=== PATIENT | male | born 1965 | race African-American/Black ===

== ENCOUNTER 2023-04-03 08:06 | Observation (INO) | payer SELFPAY ==
[2023-04-03 08:39] LABS: Absolute Lymphocytes (CBC) 1.3 K/uL (0.7-4.9); Hematocrit 37.7 % (39.6-49.0); Lymphocytes % 26.6 % (15.3-44.8); MCV 95.8 fL (80-100); MPV 9.9 fL (7.6-11.3); RBC Red Blood Cell Count 3.93 M/uL (4.33-5.43)
[2023-04-03 08:40] LABS: Protime INR 0.99
[2023-04-03] MEDS ORDERED: ASPIRIN 81 MG CHEWABLE TABLET ONE (08:41)
[2023-04-03] MEDS ORDERED: ONDANSETRON 4 MG/2 ML VIAL ONE (08:42)
[2023-04-03] MEDS ORDERED: MORPHINE 2 MG/ML SYR ONE (08:42)
[2023-04-03 08:57] LABS: Albumin 3.7 g/dL (3.4-5.0); Bilirubin Direct 0.1 mg/dL (0-0.2); Bilirubin Indirect, Calculated 0.3 mg/dL (0.2-0.8); Bilirubin Total 0.4 mg/dL (0.2-1.0); Magnesium 1.9 mg/dL (1.6-2.4); Potassium 4.5 mEq/L (3.5-5.1); Protein, Total 6.7 g/dL (6.4-8.2); Troponin High Sensitivity 3.6 pg/mL (<58.9)
--- NOTE | 2023-04-03 09:53 | RAD REPORT ---
EXAM DESCRIPTION: Julio Cesar Single View04/03/2023 8:53 am CLINICAL HISTORY: CHEST PAIN COMPARISON: No comparisons TECHNIQUE: Portable AP view of the chest. FINDINGS: The lungs are clear. No pneumothorax or effusion. The cardiomediastinal contours are unre markable. IMPRESSION: No acute cardiopulmonary process.
--- NOTE | 2023-04-03 11:39 | ER ---
Nurse's Notes [facility] Name: Dustin Jose Age: 57 yrs Sex: Male : 1965 Arrival Date: 04/03/2023 Time: 08:06 Bed 15 Private MD: Diagnosis: Chest pain, unspecified Presentation: 04/03 08:15 Chief complaint: Patient states: Chest pain. Coronavirus screen: Vaccine status: os Patient reports receiving the 2nd dose of the covid vaccine. NA. Ebola Screen: Patient negative for fever greater than or equal to 101.5 degrees Fahrenheit, and additional compatible Ebola Virus Disease symptoms. Initial Sepsis Screen: Does the patient meet any 2 criteria? No. Patient's initial sepsis screen is negative. Does the patient have a suspected source of infection? No. Patient's initial sepsis screen is negative. Risk Assessment: Do you want to hurt yourself or someone else? Patient reports no desire to harm self or others. Onset of symptoms was April 03, 2023 at 06:00. 08:15 Method Of Arrival: EMS: [facility] os 08:15 Acuity: APRIL 3 os Triage Assessment: 08:25 General: Appears in no apparent distress. comfortable, unkempt, Behavior is calm, os cooperative, appropriate for age. Pain: Complains of pain in chest Pain does not radiate. Pain currently is 8 out of 10 on a pain scale. Quality of pain is described as aching, Pain began 2 hours ago. Neuro: No deficits noted. Crisostomo Agitation-Sedation Scale (RASS): 0 - Alert and Calm Level of Consciousness is awake, alert, obeys commands, Oriented to person, place, time, situation, Appropriate for age [employer] Professor are equal bilaterally Moves all extremities. Gait is steady, Speech is normal, Facial symmetry appears normal, Pupils are PERRLA, Intact Babinski Reports Denies weakness blurred vision dizziness. Cardiovascular: Reports chest pain, Denies diaphoresis, fatigue, lightheadedness, nausea, Capillary refill < 3 seconds Rhythm is sinus bradycardia Chest pain is described as mild, quality is squeezing, is located in left anterior chest wall radiates began 2 hours prior to arrival. Respiratory: No deficits noted. GI: No deficits noted. Historical: - Allergies: 08:20 No Known Allergies; os - Home Meds: 10:46 aspirin 81 mg Oral tablet, delayed release (enteric coated) 1 tab daily [Active]; os losartan 50 mg oral tablet once [Active]; 10:48 metformin 1,000 mg Oral Tablet, ER Gastric Retention 24 hr 2 times per day for type 2 os diabetes mellitus [Active]; - Immunization history:: Adult Immunizations up to date. - Social history:: Smoking status: Patient reports the use of cigarette tobacco products, smokes one-half pack cigarettes per day. Screenin:56 [facility] ED Fall Risk Assessment (Adult) History of falling in the last 3 months, mb9 including since admission No falls in past 3 months (0 pts). [facility] ED Fall Risk Assessment (Adult) Confusion or Disorientation No (0 pts) Intoxicated or Sedated No (0 pts) Impaired Gait No (0 pts) Mobility Assist Device Used No (0 pt) Altered Elimination No (0 pt) Score/Fall Risk Level 0 - 2 = Low Risk. Abuse screen: Denies threats or abuse. Nutritional screening: No deficits noted. Tuberculosis screening: No symptoms or risk factors identified. Assessment: 09:12 Reassessment: Patient bradied down to 38 bpm. Provider Norman \Hugh\ Dr. England notified. os Vital Signs: 08:15 BP 150 / 82; Pulse 47; Resp 18; Temp 98.2; Pulse Ox 98% on R/A; os 09:07 BP 138 / 60; Pulse 37; Resp 18; Pulse Ox 98% ; os 09:35 BP 119 / 68; Pulse 37; Resp 17; Pulse Ox 99% on R/A; os 09:40 BP 137 / 83; Pulse 36; Resp 16; Pulse Ox 99% on R/A; os 10:11 BP 148 / 82; Pulse 32; Resp 17; Pulse Ox 98% ; os 12:00 BP 142 / 78; Pulse 45; Resp 18; Pulse Ox 98% on R/A; mb9 12:52 Weight 86.18 kg; Height 5 ft. 6 in. ; mb9 12:52 Body Mass Index 30.67 (86.18 kg, 167.64 cm) 9 ED Course: 08:14 Patient arrived in ED. ll1 08:14 Norman Lincoln PA is PHCP. [facility] 08:15 Rochelle Lerma, RN is Primary Nurse. os 08:15 Elmer England DO is Attending Physician. m 08:20 Triage completed. os 08:28 Basic Metabolic Panel Sent. os 08:28 CBC with Diff Sent. os 08:28 LFT's Sent. os 08:28 Magnesium Sent. os 08:28 NT PRO-BNP Sent. os 08:29 PT-INR Sent. os 08:29 Troponin HS Sent. os 08:55 XRAY Chest (1 view) In Process Unspecified. EDMS 11:00 Troponin High Sensitivity: repeat at 1000 Sent. os 11:39 Alejandro Corley MD is Hospitalizing Provider. jmm 12:57 Arm band placed on. mb9 Administered Medications: 08:46 Drug: Ondansetron IVP 4 mg Route: IVP; Site: right antecubital; os 08:47 Drug: Aspirin PO Chewable Tablet 324 mg Route: PO; os 08:47 Drug: morphine IVP or IV 2 mg Route: IVP; Infused Over: 4 mins; Site: right antecubital;os Medication: 10:44 VIS not applicable for this client. os Outcome: 11:39 Decision to Hospitalize by Provider. jmm 14:16 Patient left the ED. mb9 Signatures: Dispatcher [employer] EDMS Norman Lincoln PA PA Madison Garrison RN RN ll1 Ave Christiansen RN RN mb9 Rochelle Lerma, JUAN RN os Corrections: (The following items were deleted from the chart) 10:49 10:46 Home Meds: metformin 1,000 mg Oral Tablet, ER Gastric Retention 24 hr 2 times per os day for type 2 diabetes mellitus; os
--- NOTE | 2023-04-03 11:40 | EDPHYS ---
Physician Documentation [facility] Name: Dustin Jose Age: 57 yrs Sex: Male : 1965 Arrival Date: 04/03/2023 Time: 08:06 Bed 15 Private MD: ED Physician Elmer England HPI: 04/03 15:37 This 57 yrs old Black Male presents to ER via EMS with complaints of Chest pain. jmm 15:37 Is a 57-year-old male with history of coronary artery disease, previous NM, diabetes [facility] mellitus, hypertension the presents emerged department with complaints of substernal chest pain he describes a squeezing beginning around 6 AM this morning. Pain does not radiate. Pain lasts approximately 30 minutes with each episode.. Historical: - Allergies: 08:20 No Known Allergies; os - Home Meds: 10:46 aspirin 81 mg Oral tablet, delayed release (enteric coated) 1 tab daily [Active]; os losartan 50 mg oral tablet once [Active]; 10:48 metformin 1,000 mg Oral Tablet, ER Gastric Retention 24 hr 2 times per day for type 2 os diabetes mellitus [Active]; - Immunization history:: Adult Immunizations up to date. - Social history:: Smoking status: Patient reports the use of cigarette tobacco products, smokes one-half pack cigarettes per day. ROS: 15:37 Constitutional: Negative for fever, chills, and weight loss. [facility] 15:37 Cardiovascular: Positive for chest pain. 15:37 All other systems are negative. Exam: 15:37 Constitutional: This is a well developed, well nourished patient who is awake, alert, jmm and in no acute distress. Head/Face: atraumatic. Eyes: EOMI, no conjunctival erythema appreciated ENT: Moist Mucus Membranes Neck: Trachea midline, Supple Chest/axilla: Normal chest wall appearance and motion. Cardiovascular: Regular rate and rhythm. No edema appreciated Respiratory: Normal respirations, no respiratory distress appreciated Abdomen/GI: Non distended Back: Normal ROM Skin: General appearance color normal MS/ Extremity: Moves all extremities, no obvious deformities appreciated, no edema noted to the lower extremities Neuro: Awake and alert Psych: Behavior is normal, Mood is normal, Patient is cooperative and pleasant Vital Signs: 08:15 BP 150 / 82; Pulse 47; Resp 18; Temp 98.2; Pulse Ox 98% on R/A; os 09:07 BP 138 / 60; Pulse 37; Resp 18; Pulse Ox 98% ; os 09:35 BP 119 / 68; Pulse 37; Resp 17; Pulse Ox 99% on R/A; os 09:40 BP 137 / 83; Pulse 36; Resp 16; Pulse Ox 99% on R/A; os 10:11 BP 148 / 82; Pulse 32; Resp 17; Pulse Ox 98% ; os 12:00 BP 142 / 78; Pulse 45; Resp 18; Pulse Ox 98% on R/A; 9 12:52 Weight 86.18 kg; Height 5 ft. 6 in. ; [facility] 12:52 Body Mass Index 30.67 (86.18 kg, 167.64 cm) [facility] MDM: 08:16 Patient medically screened. [facility] 15:37 The patient was given aspirin in the Emergency Department. Data reviewed: vital signs, [facility] nurses notes, lab test result(s), radiologic studies. 04/03 08:15 Order name: Basic Metabolic Panel; Complete Time: 09:03 [facility] 04/03 08:15 Order name: CBC with Diff; Complete Time: 08:52 [facility] 04/03 08:15 Order name: LFT's; Complete Time: 09:03 [facility] 04/03 08:15 Order name: Magnesium; Complete Time: 09:03 [facility] 04/03 08:15 Order name: NT PRO-BNP; Complete Time: 09:03 [facility] 04/03 08:15 Order name: PT-INR; Complete Time: 08:41 [facility] 04/03 08:15 Order name: Troponin HS; Complete Time: 09:03 [facility] 04/03 09:27 Order name: Troponin High Sensitivity: repeat at 1000; Complete Time: 11:24 [facility] 04/03 12:31 Order name: Troponin High Sensitivity [facility] 04/03 12:31 Order name: Troponin High Sensitivity [facility] 04/03 13:43 Order name: Hemoglobin A1c; Complete Time: 15:15 [facility] 04/03 08:15 Order name: XRAY Chest (1 view); Complete Time: 09:57 [facility] 04/03 12:31 Order name: Echo with Doppler [facility] 04/03 08:15 Order name: EKG; Complete Time: 08:16 [facility] 04/03 12:31 Order name: CONS Physician Consult [facility] 04/03 12:31 Order name: Heart Healthy [facility] 04/03 08:15 Order name: Cardiac monitoring; Complete Time: 08: [facility] 04/03 08:15 Order name: EKG - Nurse/Tech; Complete Time: 08: [facility] 04/03 08:15 Order name: IV Saline Lock; Complete Time: 08: [facility] 04/03 08:15 Order name: Labs collected and sent; Complete Time: 08: [facility] 04/03 08:15 Order name: O2 Per Protocol; Complete Time: 08: [facility] 04/03 08:15 Order name: O2 Sat Monitoring; Complete Time: 08: [facility] 04/03 10:26 Order name: EKG - Nurse/Tech; Complete Time: 11:00 [facility] Administered Medications: 08:46 Drug: Ondansetron IVP 4 mg Route: IVP; Site: right antecubital; os 08:47 Drug: Aspirin PO Chewable Tablet 324 mg Route: PO; os 08:47 Drug: morphine IVP or IV 2 mg Route: IVP; Infused Over: 4 mins; Site: right antecubital;os Disposition: 18:05 Co-signature as Attending Physician, Elmer England DO I was immediately available on-site ms3 in the Emergency Department for consultation in the care of the patient. Disposition Summary: 04/03/23 11:39 Hospitalization Ordered Hospitalization Status: Observation [facility] Provider: Alejandro Corley Location: Telemetry/MedSurg (observation) [facility] Condition: Stable [facility] Problem: new [facility] Symptoms: are unchanged [facility] Bed/Room Type: Standard [facility] Room Assignment: 219(04/03/23 13:04) eb Diagnosis - Chest pain, unspecified [facility] Forms: - Medication Reconciliation Form [facility] - SBAR form [facility] Signatures: Dispatcher [employer] [facility] Norman Lincoln PA PA jmm Botello, Elizabeth eb Sims, Marcus, DO DO ms3 Rochelle Lerma RN RN os Corrections: (The following items were deleted from the chart) 10:49 10:46 Home Meds: metformin 1,000 mg Oral Tablet, ER Gastric Retention 24 hr 2 times per os day for type 2 diabetes mellitus; os 13:04 11:39 [facility] eb
[2023-04-03] MEDS ORDERED: MORPHINE 2 MG/ML SYR IV PRN (12:26)
[2023-04-03] MEDS ORDERED: NITROGLYCERIN 0.4 MG/TAB SL PRN (12:26)
[2023-04-03] MEDS: ENOXAPARIN 80 MG/0.8 ML SQ SCH ×2 (12:26→20:35)
[2023-04-03] MEDS ORDERED: PRASUGREL (EFFIENT) 10 MG TAB PO ONE (12:32)
[2023-04-03] MEDS: LOSARTAN POTASSIUM 50 MG TABLET PO SCH (12:33)
[2023-04-03] MEDS: ATORVASTATIN 20 MG TAB PO SCH ×2 (12:38→20:35)
--- NOTE | 2023-04-03 12:38 | P.HP ---
Certification for Inpatient Patient admitted to: Observation With expected LOS: <2 Midnights Practitioner: I am a practitioner with admitting privileges, knowledge of patient current condition, hospital course, and medical plan of care. Services: Services provided to patient in accordance with Admission requirements found in Title 42 Section 412.3 of the Code of Federal Regulations Patient History Date of Service: 04/03/23 Reason for admission: Chest pain History of Present Illness: It is 57 years of age former history of coronary artery disease does have a stent placement woke up at 545 started having intermittent chest tightness kept on recurring ended up here in the hospital stent placed 13 years ago patient is diabetic hypertensive has risk factors compliant with his medication patient denies smoking history - Past Medical/Surgical History -: Diabetes -: Hypertension -: Stent - Social History Smoking Status: Never smoker Review of Systems 10-point ROS is otherwise unremarkable Physical Examination - Vital Signs Temperature: 98.2 F Blood Pressure: 150/82 Pulse: 47 Respirations: 18 Pulse Ox (%): 98 - Physical Exam General: Alert, Oriented x3 HEENT: Atraumatic Neck: Supple Respiratory: Clear to auscultation bilaterally Cardiovascular: No edema, Regular rate/rhythm, Normal S1 S2 Gastrointestinal: Normal bowel sounds, Soft and benign Musculoskeletal: No clubbing Integumentary: No breakdown Neurological: Normal gait, Normal speech, Normal strength at 5/5 x4 extr - Studies Laboratory Data (last 24 hrs) 04/03/23 08:15: PT 10.9, INR 0.99 04/03/23 08:15: WBC 4.70, Hgb 12.6 L, Hct 37.7 L, Plt Count 162 04/03/23 08:15: Sodium 140, Potassium 4.5, BUN 16, Creatinine 0.74, Glucose 163 H, Magnesium 1.9, Total Bilirubin 0.4, AST 13 L, ALT 20, Alkaline Phosphatase 89 Assessment and Plan - Problems (Diagnosis) (1) Unstable angina Current Visit: Yes Status: Acute Plan: Is 57 years of age with a history of tobacco abuse diabetes hypertension metabolic syndrome of coronary artery disease with stent placement 13 years ago admitted with acute onset of intermittent chest pain very suggestive of cardiac ischemia significant risk factors patient is EKG is normal so far the troponin is also normal patient's chest x-ray is clear plan to admit to the hospital anticoagulate antiplatelet therapy beta-blockers blood pressure control glycerin allergy consult - Advance Directives Does patient have a Living Will: No Does patient have a Durable POA for Healthcare: No
[2023-04-03] MEDS ORDERED: ENOXAPARIN 80 MG/0.8 ML SQ ONE (14:20)
[2023-04-03 15:04] VITALS: BMI 30.7
[2023-04-03] MEDS: METFORMIN ER 500 MG TAB PO SCH (16:56)
[2023-04-03] MEDS ORDERED: INSULIN -REGULAR HUMAN 50 UNIT/0.5 ML ML SQ SCH (18:00)
[2023-04-03] MEDS ORDERED: DIPHENHYDRAMINE 25 MG TAB/CAP PO PRN (20:17)
[2023-04-03] MEDS ORDERED: METOPROLOL TAR 50 MG TAB PO SCH (21:00)
[2023-04-03] MEDS ORDERED: GABAPENTIN 400 MG CAP PO PRN (21:29)
[2023-04-04 00:27] VITALS: O2SAT 97
[2023-04-04] MEDS: INSULIN -REGULAR HUMAN 50 UNIT/0.5 ML ML SQ SCH ×3 (07:30→16:35)
[2023-04-04] MEDS: METFORMIN ER 500 MG TAB PO SCH ×2 (08:01→16:35)
[2023-04-04] MEDS: ENOXAPARIN 80 MG/0.8 ML SQ SCH (08:01)
[2023-04-04] MEDS: LOSARTAN POTASSIUM 50 MG TABLET PO SCH (08:01)
[2023-04-04] MEDS ORDERED: ASPIRIN EC 81 MG TAB PO SCH (09:00)
--- NOTE | 2023-04-04 16:04 | P.PN ---
Subjective Date of Service: 04/04/23 Chief Complaint: Chest pain Patient has no new complaint and desires to go home. Troponin trended negative. Nursing staff reports patient had bradycardia with heart rates down to 27, associated with cardiac pauses, longest up to 2.2 seconds. Physical Examination - Vital Signs Temperature: 98.7 F Blood Pressure: 140/73 Pulse: 67 Respirations: 18 Pulse Ox (%): 100 - Physical Exam General: Alert, In no apparent distress, Oriented x3 HEENT: Mucous membr. moist/pink Neck: Supple, JVD not distended Respiratory: Clear to auscultation bilaterally, Normal air movement Cardiovascular: No edema, Normal S1 S2, Other (Bradycardia) Gastrointestinal: Soft and benign, Non-distended Musculoskeletal: No swelling Integumentary: No rashes, No cyanosis Neurological: Normal strength at 5/5 x4 extr Assessment And Plan - Current Problems (Diagnosis) (1) Chest pain Current Visit: Yes Status: Acute (2) Bradycardia Current Visit: Yes Status: Acute (3) Coronary artery disease Current Visit: Yes Status: Acute
[2023-04-04] MEDS ORDERED: HYDRALAZINE HCL 20 MG/ML VIAL IV ONE (16:24)
--- NOTE | 2023-04-04 16:28 | P.DS ---
Admission Date: 04/03/23 Discharge Date: 04/04/23 Disposition: ROUTINE DISCHARGE Discharge Condition: FAIR Reason for Admission: Chest pain - Problems (1) Chest pain Current Visit: Yes Status: Acute (2) Bradycardia Current Visit: Yes Status: Acute (3) Coronary artery disease Current Visit: Yes Status: Acute Brief History of Present Illness: Patient is a 57 years of age with a history of coronary artery disease, history of Cardiac stent presented to the emergency department with a complaint of intermittent chest tightness that kept on recurring. Patient presented to the emergency department for evaluation. Patient has a history of hypertension and diabetes. Initial troponin in the ED was negative. EKG did not meet STEMI criteria. Chest x-ray unremarkable. Patient was hospitalized for ACS rule out Hospital Course: He was placed under observation on the medical floor. Troponin trended negative. His bus driver/monitor recorded periods of bradycardia and cardiac pauses, longest up to 2 seconds. Patient was seen and evaluated by cardiology Dr. Amezquita. Cardiac pauses deemed likely related to obstructive sleep apnea. Dr. Amezquita recommend outpatient stress test. Patient has been chest pain-free. He is discharged to follow-up with Dr. Amezquita as an outpatient. Vital Signs/Physical Exam: Temp Pulse Resp BP Pulse Ox 98.7 F 67 18 140/73 100 04/04/23 16:04 04/04/23 16:04 04/04/23 16:04 04/04/23 16:04 04/04/23 16:04 General: Alert, In no apparent distress, Oriented x3 HEENT: Mucous membr. moist/pink Neck: Supple, JVD not distended Respiratory: Clear to auscultation bilaterally, Normal air movement Cardiovascular: No edema, Regular rate/rhythm, Normal S1 S2 Gastrointestinal: Normal bowel sounds, Soft and benign, Non-distended, No tenderness Musculoskeletal: No swelling Integumentary: No cyanosis Neurological: Normal strength at 5/5 x4 extr Laboratory Data at Discharge: WBC 4.70 thou/uL (4.3-10.9) 04/03/23 08:15 Hgb 12.6 g/dL (13.6-17.9) L 04/03/23 08:15 Hct 37.7 % (39.6-49.0) L 04/03/23 08:15 Plt Count 162 thou/uL (152-406) 04/03/23 08:15 PT 10.9 SECONDS (9.5-12.5) 04/03/23 08:15 INR 0.99 04/03/23 08:15 Sodium 140 mEq/L (136-145) 04/03/23 08:15 Potassium 4.5 mEq/L (3.5-5.1) 04/03/23 08:15 BUN 16 mg/dL (7-18) 04/03/23 08:15 Creatinine 0.74 mg/dL (0.70-1.30) 04/03/23 08:15 Glucose 163 mg/dL (74-106) H 04/03/23 08:15 Magnesium 1.7 mg/dL (1.6-2.4) 04/04/23 05:30 Total Bilirubin 0.4 mg/dL (0.2-1.0) 04/03/23 08:15 AST 13 U/L (15-37) L 04/03/23 08:15 ALT 20 U/L (16-61) 04/03/23 08:15 Alkaline Phosphatase 89 U/L (45-117) 04/03/23 08:15 Triglycerides 104 mg/dL (<150) 04/04/23 05:30 Cholesterol 125 mg/dL (<200) 04/04/23 05:30 HDL Cholesterol 69 mg/dL (40-60) H 04/04/23 05:30 Cholesterol/HDL Ratio 1.81 04/04/23 05:30 Home Medications: Aspirin [Aspirin EC 81 MG] 81 mg PO DAILY 04/03/23 Gabapentin 800 mg PO DAILY PRN 04/03/23 Insulin Degludec [Tresiba Flextouch U-100] 40 unit SQ BEDTIME 04/03/23 Losartan Potassium 25 mg PO DAILY 04/03/23 Metformin ER [Glucophage ER*] 500 mg PO DAILY 04/03/23 Atorvastatin Calcium [Lipitor] 10 mg PO BEDTIME #30 tab 04/04/23 New Medications: Atorvastatin Calcium [Lipitor] 10 mg PO BEDTIME #30 tab Diet: AHA Activity: Ad mare Followup: NONE,NONE [Primary Care Provider] - Long Amezquita MD [ACTIVE - CAN ADMIT] - 1-2 Weeks (Outpatient stress test.) Time spent managing pt's care (in minutes): 28
--- NOTE | 2023-04-06 07:05 | ECHO ---
HEIGHT: 5 ft 6 in WEIGHT: 190 lb 0 oz DATE OF STUDY: 04/03/[address]: Alejandro Corley MD 2-DIMENSIONAL: YES M.MODE: YES DOPPLER: YES COLOR FLOW: YES TDS: PORTABLE: YES DEFINITY: BUBBLE STUDY: DIAGNOSIS: CHEST PAIN CARDIAC HISTORY: CATHERIZATION: YES SURGERY: NO PROSTHETIC VALVE: NO PACEMAKER: NO MEASUREMENTS (cm) DIASTOLIC (NORMALS) SYSTOLIC (NORMALS) IVSd 1.3 (0.6-1.2) LA Diam 2.4 (1.9-4.0) LVEF 55-60% LVIDd 4.3 (3.5-5.7) LVIDs 3.2 (2.0-3.5) %FS 26% LVPWd 1.3 (0.6-1.2) Ao Diam 3.0 (2.0-3.7) 2 DIMENSIONAL ASSESSMENT: RIGHT ATRIUM: NORMAL LEFT ATRIUM: NORMAL RIGHT VENTRICLE: NORMAL LEFT VENTRICLE: LEFT VENTRICULAR HYPERTROPHY TRICUSPID VALVE: MILD TRICUSPID REGURGITATION MITRAL VALVE: MILD MITRAL REGURGITATION PULMONIC VALVE: NORMAL AORTIC VALVE: NORMAL PERICARDIAL EFFUSION: NONE AORTIC ROOT: NORMAL LEFT VENTRICULAR WALL MOTION: NORMAL DOPPLER/COLOR FLOW: MILD MITRAL REGURGITATION/ MILD TRICUSPID REGURGITATION COMMENTS: 1. NORMAL LEFT VENTRICULAR EJECTION FRACTION 55-60% 2. NORMAL WALL MOTION 3. MILD CONCENTRIC LEFT VENTRICULAR HYPERTROPHY 4. NORMAL DIASTOLIC FUNCTION 5. MILD MITRAL REGURGITATION 6. MILD TRICUSPID REGURGITATION WITH NORMAL RIGHT VENTRICULAR SYSTOLIC PRESSURE TECHNOLOGIST: ELHAM ROBBINS
--- NOTE | 2023-04-06 19:33 | EKG ---
Test Date: 2023-04-04 Test Time: 06:37:23 News Videographer: ADRIANAG MEASUREMENT RESULTS: Intervals: Rate: 38 NV: QRSD: 80 QT: 500 QTc: 397 [place]: P: NV: QRS: 35 T: 57 INTERPRETIVE STATEMENTS: Junctional bradycardia Abnormal ECG Compared to ECG 04/04/2023 06:35:43 Myocardial infarct finding no longer present Electronically Signed On 04-06-23 19:29:32 CDT by Lio Traylor
--- NOTE | 2023-04-06 19:35 | EKG ---
Test Date: 2023-04-03 Test Time: 10:36:10 Financial Auditor: DIANA MEASUREMENT RESULTS: Intervals: Rate: 41 MN: QRSD: 84 QT: 500 QTc: 412 [place]: P: MN: QRS: 27 T: 57 INTERPRETIVE STATEMENTS: sb withtype 1 block...second degree Abnormal ECG No previous ECG available for comparison Electronically Signed On 04-06-23 19:32:17 CDT by Lio Tralyor
[2023-04-06 20:32] VITALS: BP 192/90; TEMP 97.7
== END 2023-04-04 17:33 | disposition home or self-care (01) ==
LOC: ER 08:06 → ERHOLD 12:26 → 2ND 14:08
PROVIDERS: ADMIT Internal Medicine Sleep Medicine; ATTEND Internal Medicine
DX: R07.9 Chest pain, unspecified (principal); I25.10 Atherosclerotic heart disease of native coronary artery without angina pectoris; E11.9 Type 2 diabetes mellitus without complications; I10 Essential (primary) hypertension
CPT/HCPCS: 36415; 71045; 80048; 80061; 80076; 82947; 83036; 83735; 83880; 84484; 85025; 85610; 93005; 93306; 96374; 96375; 99284; G0378; J0360; J1815; J2270; J2405